=== PATIENT | female | born 1945 | race Caucasian/White ===

== ENCOUNTER 2017-01-08 10:54 | Emergency (ER) | payer MEDICARE, BC ==
--- NOTE | 2017-01-08 11:58 | UC ---
Breast Complaint - HPI Summary HPI Summary: Right axilla swelling with right breast tenderness around 7 :00 area has been on /off for a while but now feels constant---was discharged from her primary care office because she had not been in the office for 3 years and thy are not able to reestablish her as a patient because she is now on medicare and they have their full quota of medicare patients - History of Current Complaint Hx Obtained From: Patient Breast Chief Complaint: Pain, Right, Other: - swelling right axilla Onset/Duration: Started Days Ago, Atraumatic, Still Present Timing: Constant Breast Pain Aggravating Factors: Palpation Breast Pain Alleviating Factors: Nothing Breast Associated Signs/Symptoms: Nodule/Mass - swollen lymph tissue under right axilla - Allergy/Home Medications Allergies/Adverse Reactions: Allergies Allergy/AdvReac Type Severity Reaction Status Date / Time Amoxicillin Allergy Hives Verified 01/08/17 11:10 Clavulanic Acid Allergy Hives Verified 01/08/17 11:10 [From Augmentin] Penicillins Allergy Hives Verified 01/08/17 11:10 Home Medications: Home Medications NK [No Home Medications Reported] 01/08/17 [History Confirmed 01/08/17] PMH/Surg Hx/FS Hx/Imm Hx Previously Healthy: Yes - Surgical History Surgical History: Yes Surgery Procedure, Year, and Place: RIGHT INGUINAL HERNIA - Family History Known Family History: Positive: Other - breast cancer - Social History Occupation: Retired Lives: With Family Alcohol Use: Daily Substance Use Type: None Smoking Status (MU): Former Smoker Have You Smoked in the Last Year: No Review of Systems Constitutional: Negative Skin: Negative, Other - right breat pain/swollen axilla Eyes: Negative ENT: Negative Respiratory: Negative Cardiovascular: Negative Gastrointestinal: Negative Genitourinary: Negative Motor: Negative Neurovascular: Negative Musculoskeletal: Negative Neurological: Negative Psychological: Negative Is Patient Immunocompromised?: No All Other Systems Reviewed And Are Negative: Yes Physical Exam Triage Information Reviewed: Yes Appearance: Well-Appearing, No Pain Distress, Well-Nourished Vital Signs: Initial Vital Signs Temp 98.2 F 01/08/17 11:06 Pulse 93 01/08/17 11:06 Resp 16 01/08/17 11:06 BP 152/80 01/08/17 11:06 Pulse Ox 96 01/08/17 11:06 Vital Signs Reviewed: Yes Eye Exam: Normal Eyes: Positive: Conjunctiva Clear ENT Exam: Normal ENT: Positive: Normal ENT inspection, Hearing grossly normal, TMs normal. Negative: Nasal congestion, Nasal drainage, Trismus, Muffled/hoarse voice Dental Exam: Normal Neck exam: Normal Neck: Positive: Supple, Nontender Respiratory Exam: Normal Respiratory: Positive: Chest non-tender, Lungs clear, Normal breath sounds, No respiratory distress, No accessory muscle use Cardiovascular Exam: Normal Cardiovascular: Positive: RRR, No Murmur, Pulses Normal, Brisk Capillary Refill Musculoskeletal Exam: Normal Musculoskeletal: Positive: Strength Intact, ROM Intact, No Edema Neurological Exam: Normal Neurological: Positive: Alert, Muscle Tone Normal Psychological Exam: Normal Psychological: Positive: Normal Response To Family, Age Appropriate Behavior Skin Exam: Other Skin: Positive: Other - right axilla swelling Re-Evaluation - Re-Evaluation First Eval Change: Improved - After 2 hours of case mangement we are able to secure a primary care doctors appointment and a primary care ultrasound for proper and complete follow up Breast Pain Course/Dx - Course Assessment/Plan: Follow with treatment care plan with [facility] - Differential Diagnoses Differential Diagnosis/HQI/PQRI: Breast Abscess, Breast Mass, Other: - Lymphadenopathy - Diagnoses Provider Diagnoses: Lymph nodes enlarged, Breast pain, right Is Visit Related: No Discharge - Discharge Plan Condition: Stable Disposition: HOME Patient Education Materials: Lymphadenopathy (ED) Referrals: Ammy Ashford MD [Medical Doctor] - 01/10/17
[2017-01-08 13:04] VITALS: BP 141/86
== END 2017-01-08 15:45 | disposition home or self-care (01) ==
LOC: UCEAST 10:54
DX: N61.1 Abscess of the breast and nipple (principal); Z88.1 Allergy status to other antibiotic agents; Z88.0 Allergy status to penicillin; Z87.891 Personal history of nicotine dependence; R59.1 Generalized enlarged lymph nodes
CPT/HCPCS: 99201; G0463

== ENCOUNTER 2018-08-21 06:50 | Day surgery (SDC) | payer MEDICARE, BC ==
[~2018-08-21 06:50] MED LIST: Acetaminophen TAB* 325 MG PO PRN; Buffered Lidocaine 1% SYRIN* 1 ML/SYRINGE INTRADERM ONE
[2018-08-21] MEDS ORDERED: Midazolam* 1 MG/ML 2 ML VIAL (2 MG) ONE (08:11)
[2018-08-21 09:09] VITALS: BP 120/70
--- NOTE | 2018-08-21 12:45 | OP ---
DATE OF OPERATION: 08/21/2018. DATE OF : 1945. SURGEON: Butser Villalta M.D. PREOPERATIVE DIAGNOSIS: Cataract right eye. POSTOPERATIVE DIAGNOSIS: Cataract right eye. OPERATIVE PROCEDURE: Extracapsular cataract extraction with intraocular lens implant right eye. PROCEDURE: The patient was brought to the operating room after being given 1/2% Alcaine with epineph rine drops in the preoperative area. The eye was prepped and draped in the usual sterile fashion. S terile drape and eyelid speculum were placed. Again, topical 1/2% Alcaine with epinephrine was given . A paracentesis incision was made at the 9 o'clock position with the No.75 blade. Clear cornea inc ision 2.2 x 2.2-mm was created at the 12 o'clock position starting at the anterior limbus using the 2 .2-mm keratome. The anterior chamber was irrigated with 0.4 mL of 1% non-preservative intracameral l idocaine and filled with DisCoVisc. A capsulorrhexis was completed using the cystotome and the Utrat a forceps. Hydrodissection was performed with balanced salt solution. The lens nucleus was removed w ith the Phacoemulsification handpiece without incident. Cortex was removed with the irrigation-aspir ation handpiece. The capsular bag was re-inflated using DisCoVisc and an [id number] implant was inser missy with the shooter. The irrigation-aspiration handpiece was used to remove all residual DisCoVisc. The eye was refilled with balanced salt solution and the wound checked and found to be watertight. Topical Maxitrol drops were given. [id number]/[facility] #: [id number]
[2018-08-21] MEDS ORDERED: acetaZOLAMIDE TAB* 250 MG ONE (13:52)
[2018-08-21] MEDS ORDERED: Povidone Iodine 5% OPTH* 30 ML BTL ONE (13:52)
[2018-08-21] MEDS ORDERED: Neomycin/Polymy/Dex OPTH.SUSP* MAXITROL 0.1% 5 ML ONE (13:52)
[2018-08-21] MEDS ORDERED: Cyclopentolate 1% OPTH.SOL* 2 ML BTL ONE (13:52)
[2018-08-21] MEDS ORDERED: Lidocaine 2% EPI 1:200000 MPF*10-20 ML VIAL ONE (13:52)
[2018-08-21] MEDS ORDERED: Proparacaine 0.5% OPHTH.SOL* 15 ML BTL ONE (13:52)
[2018-08-21] MEDS ORDERED: Lidocaine 1%* 5 ML VIAL ONE (13:52)
[2018-08-21] MEDS ORDERED: Ketorolac 0.5% OPHTH (NF) 0.5 % 5 ML BTL ONE (13:52)
[2018-08-21] MEDS ORDERED: Phenylephrine OPHTH SOL 2.5%* 2 ML ONE (13:52)
== END 2018-08-21 09:00 | disposition home or self-care (01) ==
LOC: OREAST 06:50
PROVIDERS: ATTEND Specialist
DX: H25.811 Combined forms of age-related cataract, right eye (principal); H43.813 Vitreous degeneration, bilateral; H04.123 Dry eye syndrome of bilateral lacrimal glands; Z87.891 Personal history of nicotine dependence; E78.5 Hyperlipidemia, unspecified; R73.01 Impaired fasting glucose; M81.0 Age-related osteoporosis without current pathological fracture
CPT/HCPCS: A9270-GY; J2250; V2632

== ENCOUNTER 2018-08-28 09:57 | Day surgery (SDC) | payer MEDICARE, BC ==
[2018-08-28] MEDS ORDERED: Midazolam* 1 MG/ML 2 ML VIAL (2 MG) ONE ×2 (12:31→12:59)
[2018-08-28 13:35] VITALS: BP 122/80
[2018-08-28] MEDS ORDERED: Phenylephrine OPHTH SOL 2.5%* 2 ML ONE (13:42)
[2018-08-28] MEDS ORDERED: Ketorolac 0.5% OPHTH (NF) 0.5 % 5 ML BTL ONE (13:42)
[2018-08-28] MEDS ORDERED: Cyclopentolate 1% OPTH.SOL* 2 ML BTL ONE (13:42)
[2018-08-28] MEDS ORDERED: Povidone Iodine 5% OPTH* 30 ML BTL ONE (13:42)
[2018-08-28] MEDS ORDERED: Neomycin/Polymy/Dex OPTH.SUSP* MAXITROL 0.1% 5 ML ONE (13:42)
[2018-08-28] MEDS ORDERED: Lidocaine 1%* 5 ML VIAL ONE (13:42)
[2018-08-28] MEDS ORDERED: acetaZOLAMIDE TAB* 250 MG ONE (13:42)
[2018-08-28] MEDS ORDERED: Lidocaine 2% EPI 1:200000 MPF*10-20 ML VIAL ONE (13:42)
[2018-08-28] MEDS ORDERED: Proparacaine 0.5% OPHTH.SOL* 15 ML BTL ONE (13:42)
--- NOTE | 2018-08-28 15:02 | OP ---
OPERATIVE NOTE: DATE OF OPERATION: 08/28/18 DATE OF : [birth year] SURGEON: Buster Villalta M.D. PREOPERATIVE DIAGNOSIS: Cataract, left eye. POSTOPERATIVE DIAGNOSIS: Cataract, left eye. OPERATIVE PROCEDURE: Extracapsular cataract extraction with intraocular lens implant left eye. PROCEDURE: The patient was brought to the operating room after being given 1/2% Alcaine with epineph rine drops in the preoperative area. The eye was prepped and draped in the usual sterile fashion. S terile drape and eyelid speculum were placed. Again, topical 1/2% Alcaine with epinephrine was given . A paracentesis incision was made at the 3 o'clock position with the No.75 blade. Clear cornea inc ision 2.2 x 2.2-mm was created at the 6 o'clock position starting at the anterior limbus using the 2. 2-mm keratome. The anterior chamber was irrigated with 0.4 mL of 1% non-preservative intracameral li docaine and filled with DisCoVisc. A capsulorrhexis was completed using the cystotome and the Utrata forceps. Hydrodissection was performed with balanced salt solution. The lens nucleus was removed wi th the Phacoemulsification handpiece without incident. Cortex was removed with the irrigation-aspira tion handpiece. The capsular bag was re-inflated using DisCoVisc and an [id number] implant was insert ed with the shooter. The irrigation-aspiration handpiece was used to remove all residual DisCoVisc. The eye was refilled with balanced salt solution and the wound checked and found to be watertight. Topical Maxitrol drops were given. [id number]/[facility] #: [id number]
== END 2018-08-28 13:38 | disposition home or self-care (01) ==
LOC: OREAST 09:57
PROVIDERS: ATTEND Specialist
DX: H25.812 Combined forms of age-related cataract, left eye (principal); H04.123 Dry eye syndrome of bilateral lacrimal glands; H43.813 Vitreous degeneration, bilateral; Z87.891 Personal history of nicotine dependence; R73.01 Impaired fasting glucose; M81.0 Age-related osteoporosis without current pathological fracture; E78.5 Hyperlipidemia, unspecified
CPT/HCPCS: A9270-GY; J2250; V2632

== ENCOUNTER 2020-06-06 16:43 | Inpatient (IN) ==
[2020-06-06 18:08] LABS: ABS Basophils 0.1 10^3/ul (0-0.2); ABS Eosinophils 0.1 10^3/ul (0-0.6); ABS Lymphocytes 1.4 10^3/ul (1.0-4.8); Eosinophil % 0.8 %; Hematocrit 39 % (35-47); Hemoglobin 12.9 g/dL (12.0-16.0); Mean Corpuscular HGB Conc 33 g/dL (31-36); Mean Corpuscular Hemoglobin 31 pg (27-31); Mean Corpuscular Volume 92 fL (80-97); Mean Platelet Volume 7.2 fL (7.4-10.4); Platelet Count 345 10^3/uL (150-450); Red Blood Count 4.22 10^6 /uL (3.70-4.87); Red Cell Distribution Width 13 % (10-15); White Blood Count 11.6 10^3/uL (3.5-10.8)
[2020-06-06 18:25] LABS: Albumin 4.1 g/dL (3.2-5.2); Albumin/Globulin Ratio 1.5 (1-3); BUN/Creatinine Ratio 17.8 (8-20); Calcium 9.6 mg/dL (8.6-10.3); EGFR African American 94.3 (>60); EGFR Non-African American 77.9 (>60); Globulin 2.8 g/dL (2-4); Potassium 3.9 mmol/L (3.5-5.0); Total Bilirubin 0.5 mg/dL (0.2-1.0); Total Protein 6.9 g/dL (6.4-8.9)
[2020-06-06] MEDS ORDERED: Iohexol 350 (CONTRAST) 500 ML MDV IV ONE (18:33)
[2020-06-06 20:38] LABS: EGFR African American 107.8 (>60); EGFR Non-African American 89.1 (>60)
[2020-06-06] MEDS: Heparin 5000 UNITS/ML 1 mL VIAL IV SCH (20:44)
[2020-06-06] MEDS: Heparin DRIP 25,000 UNITS BAG 25,000 UNITS/500 ML BAG IV SCH (20:47)
[2020-06-07 03:54] LABS: ABS Basophils 0.1 10^3/ul (0-0.2); ABS Eosinophils 0.2 10^3/ul (0-0.6); ABS Monocytes 0.9 10^3/ul (0-0.8); ABS Neutrophils 5.9 10^3/ul (1.5-7.7); Eosinophil % 2.1 %; Hematocrit 35 % (35-47); Mean Corpuscular HGB Conc 34 g/dL (31-36); Mean Corpuscular Hemoglobin 32 pg (27-31); Mean Corpuscular Volume 93 fL (80-97); Mean Platelet Volume 7.3 fL (7.4-10.4); Platelet Count 319 10^3/uL (150-450); Red Cell Distribution Width 13 % (10-15); White Blood Count 9.1 10^3/uL (3.5-10.8)
[2020-06-07] MEDS: Heparin DRIP 25,000 UNITS BAG 25,000 UNITS/500 ML BAG IV SCH ×2 (10:23→21:44)
[2020-06-07] MEDS: Heparin 5000 UNITS/ML 1 mL VIAL IV SCH (10:23)
[2020-06-08] MEDS: Heparin DRIP 25,000 UNITS BAG 25,000 UNITS/500 ML BAG IV SCH (01:35)
[2020-06-08] MEDS: Heparin 5000 UNITS/ML 1 mL VIAL IV SCH (01:36)
[2020-06-09 16:05] VITALS: BP 107/57
== END 2020-06-09 18:55 | disposition home or self-care (01) | DRG 175 ==
LOC: ED 16:43 → MEDTELE 20:36 → MED 22:47
PROVIDERS: ADMIT Internal Medicine Interventional Cardiology; ATTEND Internal Medicine